=== PATIENT | female | born 1985 | race Asian ===

== ENCOUNTER 2019-03-29 06:48 | Emergency (ER) | payer OTHER ==
[~2019-03-29] VITALS: Ht 154.9 cm; Wt 67.4 kg
[2019-03-29 06:52] VITALS: BP 106/60; PULSE 72; RESP 16; Ht 154.9 cm; Wt 67.4 kg
[2019-03-29] MEDS ORDERED: KETOROLAC 60 MG INJ IM STA (07:17)
[2019-03-29] MEDS ORDERED: ONDANSETRON (ODT) 4 MG TAB ODT STA (07:17)
[2019-03-29] MEDS ORDERED: NAPR-985 PO (07:24)
[2019-03-29] MEDS ORDERED: HYDR-4011 PO (07:24)
[2019-03-29] MEDS ORDERED: CYCL10TA7 PO (07:24)
[2019-03-29] MEDS ORDERED: MED4DP PO (07:24)
[2019-03-29] MEDS ORDERED: DEXAMETHASONE 10 MG/ML 1 ML INJ IM ONE (07:30)
[2019-03-29] MEDS ORDERED: DIAZEPAM 5 MG TAB PO ONE (07:30)
--- NOTE | 2019-03-29 08:34 | ERD ---
ER Documentation Chief Complaint Chief Complaint lower back pain x 2 months HPI 34-year-old female presenting with back pain x2 months. Patient states her pain is worse with movement and is located in the lower mid back. She denies any traumatic injuries. Denies fevers. Denies abdominal pain. Denies changes in urination or bowel movement. Has not taken medications for her pain. Denies any numbness or tingling down her legs. Has normal urination bowel movement. Denies other medical problems. NKDA. Surgical history denies. Social history denies ROS All systems reviewed and are negative except as per history of present illness. Medications Home Meds Active Scripts Cyclobenzaprine Hcl* (Cyclobenzaprine Hcl*) 10 Mg Tablet, 10 MG PO TID, #15 TAB Prov:SANDRA HAMMER PA-C 03/29/19 Hydrocodone/Acetaminophen ([place] 5-325 Tablet) 1 Each Tablet, 1 TAB PO Q6H PRN for PAIN, #7 TAB Prov:SANDRA HAMMER PA-C 03/29/19 Naproxen* (Naprosyn*) 500 Mg Tablet, 500 MG PO BID PRN for PAIN AND/OR INFLAMMATION, #30 TAB Prov:SANDRA HAMMER PA-C 03/29/19 Methylprednisolone* (Medrol* DOSE PACK) 4 Mg/Dose-Pack Tab.ds.pk, 4 MG PO . DIRECTED, #1 PACKET Prov:SANDRA HAMMER PA-C 03/29/19 Allergies Allergies: Coded Allergies: No Known Allergy (Unverified , 03/29/19) PMhx/Soc Medical and Surgical Hx: pt denies Medical Hx, pt denies Surgical Hx Hx Alcohol Use: No Hx Substance Use: No Hx Tobacco Use: No Smoking Status: Never smoker FmHx Family History: No diabetes, No coronary disease, No other Physical Exam Vitals Vital Signs Date Temp Pulse Resp B/P (MAP) Pulse Ox O2 O2 Flow FiO2 Time Delivery Rate 03/29/19 97.6 72 16 106/60 98 06:52 (75) Physical Exam GENERAL: The patient is well-appearing, well-nourished, in no acute distress CHEST: Clear to auscultation bilaterally. There are no rales, wheezes or rhonchi. HEART: Regular rate and rhythm. No murmurs, clicks, rubs or gallops. BACK: No midline or flank tenderness. Tender to palpation down paraspinous muscles of the lumbar spine. No midline tenderness or bony step-offs felt. EXTREMITIES: Equal pulses bilaterally. There is no peripheral clubbing, cyanosis or edema. No focal swelling or erythema. Full range of motion. Grossly neurovascularly intact. NEUROLOGIC: Alert and oriented. Cranial nerves II through XII intact. Motor strength in all 4 extremities with 5 out of 5 strength. Sensation grossly intact. Normal speech and gait. Babinski negative. DTR 2+ throughout. SKIN: There is no apparent rash or petechiae. The skin is warm and dry. Results 24 hrs Laboratory Tests Test 03/29/19 07:31 03/29/19 07:32 POC Beta HCG, Qualitative NEGATIVE Bedside Urine pH (LAB) 6.0 Bedside Urine Protein (LAB) Negative Bedside Urine Glucose (UA) Negative Bedside Urine Ketones (LAB) Negative Bedside Urine Blood Trace-intact Bedside Urine Nitrite (LAB) Negative Bedside Urine Leukocyte Esterase (L Negative Current Medications Medications Dose Sig/Carlotta Start Time Status Last (Trade) Ordered Route PRN Stop Time Admin Dose Reason Admin Ketorolac 60 mg ONCE STAT 03/29/19 DC 03/29/19 Tromethamine IM 07:17 07:36 (Toradol) 03/29/19 07:18 Ondansetron 4 mg ONCE STAT 03/29/19 DC 03/29/19 HCl (Zofran ODT 07:17 07:37 Odt) 03/29/19 07:18 10 mg ONCE ONCE 03/29/19 DC 03/29/19 Dexamethasone IM 07:30 07:37 (Decadron) 03/29/19 07:31 Diazepam 5 mg ONCE ONCE 03/29/19 DC 03/29/19 (Valium) PO 07:30 07:37 03/29/19 07:31 Procedures/MDM ER course: Valium, Decadron and Toradol given in ED. Urinalysis negative. MDM: 34-year-old female presenting with back pain. Patient has had back pain consistent for the last 2 months believe this is muscular skeletal nature. I have low suspicion for acute fracture dislocation. Low suspicion for discitis or epidural abscess. Vitals are stable and exam is non-concerning. I have low suspicion for cauda equina as patient has normal sensation to the distal extremities with control of bowel movement and urination. Patient does not have saddle anesthesia. Patient is discharged with strict ER precautions and supportive medications. I do not feel blood work or imaging is indicated today. I have low suspicion for acute fracture dislocation patient denies traumatic injury. Patient is discharged with strict ER precautions. All questions answered at discharge Departure Diagnosis: Primary Impression: Back pain Condition: Stable Patient Instructions: Back Pain (Acute Or Chronic) Referrals: [facility] YOU HAVE RECEIVED A MEDICAL SCREENING EXAM AND THE RESULTS INDICATE THAT YOU DO NOT HAVE A CONDITION THAT REQUIRES URGENT TREATMENT IN THE EMERGENCY DEPARTMENT. FURTHER EVALUATION AND TREATMENT OF YOUR CONDITION CAN WAIT UNTIL YOU ARE SEEN IN YOUR DOCTORS OFFICE WITHIN THE NEXT 1-2 DAYS. IT IS YOUR RESPONSIBILITY TO MAKE AN APPOINTMENT FOR FOLOW-UP CARE. IF YOU HAVE A PRIMARY DOCTOR --you should call your primary doctor and schedule an appointment IF YOU DO NOT HAVE A PRIMARY DOCTOR YOU CAN CALL OUR PHYSICIAN REFERRAL HOTLINE AT IF YOU CAN NOT AFFORD TO SEE A PHYSICIAN YOU CAN CHOSE FROM THE FOLLOWING [facility] CLINICS [facility] [address] [place] [address] [facility] [facility] [address] [facility] [address] [facility]. [facility] [address] [facility]. [facility]. [address] Additional Instructions: FOLLOW UP WITH YOUR PRIMARY CARE PHYSICIAN TOMORROW.Return to this facility if you are not improving as expected. SANDRA HAMMER PA-C Mar 29, 2019 08:34
== END 2019-03-29 07:45 | disposition home or self-care (01) ==
LOC: FTE 06:48
DX: M54.5 Low back pain (principal)
CPT/HCPCS: 81003; 81025; 96372; J1100; J1885; Z7502; Z7610